=== PATIENT | male | born 1965 | race African-American/Black ===

== ENCOUNTER 2018-09-29 08:47 | Inpatient (IN) | payer OTHER ==
--- NOTE | 2018-09-29 10:28 | HP ---
CIWA Score Nausea/Vomitin Muscle Tremors: 2 Anxiety: 2 Agitation: 2 Paroxysmal Sweats: 1-Minimal Palms Moist Orientation: 0-Oriented Tacttile Disturbances: 1-Very Mild Itch/Numbness Auditory Disturbances: 1-Very Mild Visual Disturbances: 0-None Headache: 2-Mild CIWA-Ar Total Score: 13 - Admission Criteria OASAS Guidelines: Admission for Medically Managed Detox: Requires at least one of the followin. CIWA greater than 12 2. Seizures within the past 24 hours 3. Delirium tremens within the past 24 hours 4. Hallucinations within the past 24 hours 5. Acute intervention needed for co occurring medical disorder 6. Acute intervention needed for co occurring psychiatric disorder 7. Severe withdrawal that cannot be handled at a lower level of care (continued vomiting, continued diarrhea, abnormal vital signs) requiring intravenous medication and/or fluids 8. Admission ROS BHS - HPI Chief Complaint: i need help to stop drinking alcohol Allergies/Adverse Reactions: Allergies Allergy/AdvReac Type Severity Reaction Status Date / Time No Known Allergies Allergy Verified 11/19/13 20:23 History of Present Illness: this 52 years old male with alcohol dependence,seeking detox,withdrawal symptom, seen in [facility] yesterday for cellulitis both legs ,supposed to be on clindamycin 300 mgs po q 6 hrs for 7 days multiple admissions in detox,last 2018 nicotine dependence 1/2 pack/day,does not want nicotine replacemant syncope alcohol related swelling with multiple ulcer and cellulitis both legs for 1 week no significant period of sobriety plan for relocate in [place] , Exam Limitations: No Limitations - Ebola screening Have you traveled outside of the country in the last 21 days: No Have you had contact with anyone from an Ebola affected area: No Do you have a fever: No - Review of Systems Constitutional: Loss of Appetite, Malaise, Night Sweats, Changes in sleep EENT: reports: Nose Congestion Respiratory: reports: No Symptoms reported Cardiac: reports: No Symptoms Reported GI: reports: Diarrhea, Nausea, Indigestion : reports: No Symptoms Reported Musculoskeletal: reports: Back Pain, Muscle Pain Integumentary: reports: Dryness Neuro: reports: Headache, Tremors Endocrine: reports: No Symptoms Reported Hematology: reports: No Symptoms Reported Psychiatric: reports: No Sypmtoms Reported, Judgement Intact, Mood/Affect Appropiate, Orientated x3 Other Systems: Reviewed and Negative Patient History - Patient Medical History Hx Anemia: No Hx Asthma: No Hx Chronic Obstructive Pulmonary Disease (COPD): No Hx Cancer: No Hx Cardiac Disorders: No Hx Congestive Heart Failure: No Hx Hypertension: Yes (currently on treatment,norvasc 10mg/d) Hx Hypercholesterolemia: No Hx Pacemaker: No HX Cerebrovascular Accident: No Hx Seizures: No Hx Dementia: No Hx Diabetes: No Hx Gastrointestinal Disorders: No Hx Liver Disease: No Hx Genitourinary Disorders: No Hx Sexually Transmitted Disorders: No Hx Renal Disease (ESRD): No Hx Thyroid Disease: No Hx Human Immunodeficiency Virus (HIV): No (checked neg 1 month ago) Hx Hepatitis C: No (checked neg 1 month ago) Hx Depression: No Hx Suicide Attempt: No Hx Bipolar Disorder: No Hx Schizophrenia: No Other Medical History: no suiciidal,no homicidal - Patient Surgical History Past Surgical History: No Hx Neurologic Surgery: No Hx Cataract Extraction: No Hx Cardiac Surgery: No Hx Lung Surgery: No Hx Breast Surgery: No Hx Breast Biopsy: No Hx Abdominal Surgery: No Hx Appendectomy: No Hx Cholecystectomy: No Hx Genitourinary Surgery: No Hx Section: No Hx Orthopedic Surgery: No Anesthesia Reaction: No - PPD History Previous Implant?: Yes Documented Results: Negative w/o proof Implanted On Prior R Admission?: Yes Date: 12/17/12 Results: 0 mm PPD to be Administered?: Yes - Smoking Cessation Smoking history: Current every day smoker Have you smoked in the past 12 months: Yes Aproximately how many cigarettes per day: 10 Cigars Per Day: 0 Hx Chewing Tobacco Use: No Initiated information on smoking cessation: Yes 'Breaking Loose' booklet given: 09/29/18 - Substance & Tx. History Hx Alcohol Use: Yes Hx Substance Use: No Substance Use Type: Alcohol Hx Substance Use Treatment: Yes (2018 in [place]) - Substances abused Alcohol Substance route: Oral Frequency: Daily Amount used: 2 cases beer per day 12 ozs Age of first use: 18 Date of last use: 09/28/18 Family Disease History - Family Disease History Family Disease History: Diabetes: Grandparent, Other: Father (htn ,), Mother (ALCOHOL,) Admission Physical Exam BHS - Vital Signs Vital Signs: Vital Signs - 24 hr 09/29/18 09:40 Temperature 97.3 F L Pulse Rate 87 Respiratory 20 Rate Blood Pressure 150/92 - Physical General Appearance: Yes: Moderate Distress, Tremorous, Irritable, Sweating, Anxious HEENTM: Yes: Normal ENT Inspection, ALYX, Pharynx Normal Respiratory: Yes: Lungs Clear, Normal Breath Sounds, No Respiratory Distress Neck: Yes: Within Normal Limits, Supple, Trachea in good position Breast: Yes: Within Normal Limits Cardiology: Yes: Within Normal Limits, Regular Rhythm, Regular Rate, S1, S2 Abdominal: Yes: Within Normal Limits, Normal Bowel Sounds, Non Tender, Flat, Soft Genitourinary: Yes: Within Normal Limits Back: Yes: Muscle Spasm Musculoskeletal: Yes: full range of Motion, Back pain, Muscle Pain Extremities: Yes: Tremors, Inflammation (swelling with pain in both legs multiple ulcers both legs cellulitis both legs poor hygiene) Neurological: Yes: machine heel builder II-XII NML intact, Alert, Motor Strength 5/5 Integumentary: Yes: Dry Lymphatic: Yes: Within Normal Limits - Diagnostic (1) Alcohol dependence with uncomplicated withdrawal Current Visit: Yes Status: Acute (2) Syncope Current Visit: Yes Status: Acute (3) Bilateral cellulitis of lower leg Current Visit: Yes Status: Acute (4) Ulcers of both lower extremities Current Visit: Yes Status: Acute (5) Nicotine dependence Current Visit: Yes Status: Acute (6) Dehydration Current Visit: Yes Status: Acute Cleared for Admission S - Detox or Rehab [facility] Level of Care: Medically Managed Detox Regimen/Protocol: Librium Inpatient Rehab Admission - Rehab Decision to Admit Inpatient rehab admission?: No
[2018-09-29] MEDS ORDERED: MAGNESIUM HYDROX 2400MG/30ML ORAL SUSPENSION 30 ML CUP PO PRN (10:38)
[2018-09-29] MEDS ORDERED: IBUPROFEN 400 MG TABLET (FP) PO PRN (10:38)
[2018-09-29] MEDS ORDERED: chlordiazePOXIDE HCL 25 MG CAPSULE PO PRN (10:38)
[2018-09-29] MEDS ORDERED: MAGNESIUM CITRATE 300 ML BOTTLE PO PRN (10:38)
[2018-09-29] MEDS ORDERED: METHOCARBAMOL 500 MG TABLET PO PRN (10:38)
[2018-09-29] MEDS ORDERED: MAG HYDROX/AL HYDROX/SIMETH 30 ML UNIT-DOSE CUP PO PRN (10:38)
[2018-09-29] MEDS ORDERED: MENTHOL/PHENOL 1 EACH UD MM PRN (10:38)
[2018-09-29] MEDS ORDERED: MELATONIN 5 MG TABLETS PO PRN (10:38)
[2018-09-29] MEDS ORDERED: hydrOXYzine PAMOATE 25 MG CAPSULE (FP) PO PRN (10:38)
[2018-09-29] MEDS ORDERED: BISMUTH SUBSALICYLATE 524 MG/30 ML UD PO PRN (10:38)
[2018-09-29] MEDS ORDERED: ACETAMINOPHEN 325 MG TABLET (FP) PO PRN ×2 (10:38)
[2018-09-29] MEDS ORDERED: CLINDAMYCIN HCL 300 MG CAPSULE PO SCH (12:00)
[2018-09-29] MEDS: amLODIPine BESYLATE 10 MG TABLET (FP) PO SCH (12:07)
[2018-09-29] MEDS: CLINDAMYCIN HCL 150 MG CAPSULE (FP) PO SCH ×3 (12:07→23:14)
--- NOTE | 2018-09-29 12:19 | PN ---
S Progress Note Note: pt refusing PPD test, says he prefers cxray- ordered
--- NOTE | 2018-09-29 15:43 | EKG ---
Test Reason : Blood Pressure : / mmHG Vent. Rate : 080 BPM Atrial Rate : 080 BPM P-R Int : 150 ms QRS Dur : 096 ms QT Int : 394 ms P-R-T Axes : 049 038 040 degrees QTc Int : 454 ms NORMAL SINUS RHYTHM VOLTAGE CRITERIA FOR LEFT VENTRICULAR HYPERTROPHY ABNORMAL ECG NO PREVIOUS ECGS AVAILABLE Confirmed by KILEY MILAN MD ([id number]) on 09/29/2018 3:42:55 PM Referred By: Confirmed By:KILEY MILAN MD
[2018-09-29] MEDS: chlordiazePOXIDE HCL 25 MG CAPSULE PO SCH ×2 (18:14→22:45)
[2018-09-29 19:44] LABS: PH,URINE 6.5 (5.0-8.0); URINE APPEARANCE CLEAR; URINE BILIRUBIN NEGATIVE (NEGATIVE); URINE COLOR YELLOW; URINE GLUCOSE (UA) NEGATIVE (NEGATIVE); URINE KETONE NEGATIVE (NEGATIVE); URINE NITRITE NEGATIVE (NEGATIVE); URINE PROTEIN NEGATIVE (NEGATIVE); URINE UROBILINOGEN 0.2 mg/dL (0.2-1.0)
[2018-09-29 19:45] LABS: URINE LEUK ESTERASE NEGATIVE (NEGATIVE)
[2018-09-29] MEDS: THIAMINE HCL 100 MG TABLET (FP) PO SCH (22:45)
[2018-09-30] MEDS: chlordiazePOXIDE HCL 25 MG CAPSULE PO SCH ×3 (06:54→18:03)
[2018-09-30] MEDS: CLINDAMYCIN HCL 150 MG CAPSULE (FP) PO SCH ×4 (06:55→23:10)
[2018-09-30 09:42] LABS: HEMATOCRIT 30.4 % (35.4-49); HEMOGLOBIN 9.9 GM/dL (11.7-16.9); MCH 25.6 pg (25.7-33.7); MCHC 32.5 g/dl (32.0-35.9); MEAN CELL VOLUME 78.8 fl (80-96); MEAN PLT VOLUME 8.4 fl (7.5-11.1); PLATELET COUNT 346 K/MM3 (134-434); RBC 3.86 M/mm3 (4.00-5.60); RDW 18.1 % (11.9-15.9); WHITE BLOOD COUNT 7.2 K/mm3 (4.0-10.0)
[2018-09-30 09:56] LABS: ALBUMIN 2.6 g/dl (3.4-5.0); BILIRUBIN,TOTAL 0.2 mg/dL (0.2-1); BLOOD UREA NITROGEN 9.2 mg/dL (7-18); CALCIUM 8.5 mg/dL (8.5-10.1); POTASSIUM 4.3 mmol/L (3.5-5.1); TOT PROT 6.4 g/dl (6.4-8.2)
--- NOTE | 2018-09-30 10:35 | PN ---
S CIWA - CIWA Score Nausea/Vomitin Muscle Tremors: 2 Anxiety: 2 Agitation: 2 Paroxysmal Sweats: No Perspiration Orientation: 0-Oriented Tacttile Disturbances: 1-Very Mild Itch/Numbness Auditory Disturbances: 1-Very Mild Visual Disturbances: 0-None Headache: 2-Mild CIWA-Ar Total Score: 12 S Progress Note (SOAP) Subjective: alert,irritable,anxious,interrupted sleep,tremor,pain in the body and legs Objective: 09/30/18 10:33 Vital Signs Temperature 98.1 F 09/30/18 09:14 Pulse Rate 82 09/30/18 09:14 Respiratory Rate 17 09/30/18 09:14 Blood Pressure 152/103 H 09/30/18 09:14 O2 Sat by Pulse Oximetry (%) Laboratory Last Values WBC 7.2 K/mm3 (4.0-10.0) 09/30/18 07:30 RBC 3.86 M/mm3 (4.00-5.60) L 09/30/18 07:30 Hgb 9.9 GM/dL (11.7-16.9) L 09/30/18 07:30 Hct 30.4 % (35.4-49) L D 09/30/18 07:30 MCV 78.8 fl (80-96) L 09/30/18 07:30 MCH 25.6 pg (25.7-33.7) L 09/30/18 07:30 MCHC 32.5 g/dl (32.0-35.9) 09/30/18 07:30 RDW 18.1 % (11.9-15.9) H 09/30/18 07:30 Plt Count 346 K/MM3 (134-434) D 09/30/18 07:30 MPV 8.4 fl (7.5-11.1) 09/30/18 07:30 Sodium 140 mmol/L (136-145) 09/30/18 07:30 Potassium 4.3 mmol/L (3.5-5.1) 09/30/18 07:30 Chloride 107 mmol/L (98-107) 09/30/18 07:30 Carbon Dioxide 28 mmol/L (21-32) 09/30/18 07:30 Anion Gap 5 MMOL/L (8-16) L 09/30/18 07:30 BUN 9.2 mg/dL (7-18) 09/30/18 07:30 Creatinine 1.0 mg/dL (0.55-1.3) 09/30/18 07:30 Est GFR (CKD-EPI)AfAm 99.85 09/30/18 07:30 Est GFR (CKD-EPI)NonAf 86.15 09/30/18 07:30 Random Glucose 103 mg/dL (74-106) 09/30/18 07:30 Calcium 8.5 mg/dL (8.5-10.1) 09/30/18 07:30 Total Bilirubin 0.2 mg/dL (0.2-1) 09/30/18 07:30 AST 12 U/L (15-37) L 09/30/18 07:30 ALT 13 U/L (13-61) 09/30/18 07:30 Alkaline Phosphatase 48 U/L (45-117) 09/30/18 07:30 Total Protein 6.4 g/dl (6.4-8.2) 09/30/18 07:30 Albumin 2.6 g/dl (3.4-5.0) L 09/30/18 07:30 Urine Color Yellow 09/29/18 15:45 Urine Appearance Clear 09/29/18 15:45 Urine pH 6.5 (5.0-8.0) 09/29/18 15:45 Ur Specific [place] 1.020 (1.010-1.035) 09/29/18 15:45 Urine Protein Negative (NEGATIVE) 09/29/18 15:45 Urine Glucose (UA) Negative (NEGATIVE) 09/29/18 15:45 Urine Ketones Negative (NEGATIVE) 09/29/18 15:45 Urine Blood Negative (NEGATIVE) 09/29/18 15:45 Urine Nitrite Negative (NEGATIVE) 09/29/18 15:45 Urine Bilirubin Negative (NEGATIVE) 09/29/18 15:45 Urine Urobilinogen 0.2 mg/dL (0.2-1.0) 09/29/18 15:45 Ur Leukocyte Esterase Negative (NEGATIVE) 09/29/18 15:45 09/30/18 10:33 other labs pending anemia Assessment: 09/30/18 10:34 withdrawal symptom Plan: continue detox,ferrous sulfate 325 mgs po bid,silvadene cream both legs bid, continue clindamycin 300 mgs po 6 6 hrs for 7 days
[2018-09-30] MEDS: PRENATAL VITAMINS W/ FOLIC ACID TABLET (FP) PO SCH (10:48)
[2018-09-30] MEDS: amLODIPine BESYLATE 10 MG TABLET (FP) PO SCH (10:48)
[2018-09-30] MEDS: SILVER SULFADIAZINE 1% TOP CREAM 50 GM JAR TP SCH ×2 (11:00→22:50)
[2018-09-30] MEDS: FERROUS SO4 325 MG TABLET (FP) PO SCH (18:04)
[2018-09-30] MEDS: THIAMINE HCL 100 MG TABLET (FP) PO SCH (23:30)
[2018-10-01] MEDS: chlordiazePOXIDE HCL 25 MG CAPSULE PO SCH ×3 (00:21→10:33)
[2018-10-01] MEDS: CLINDAMYCIN HCL 150 MG CAPSULE (FP) PO SCH ×4 (05:56→23:06)
[2018-10-01] MEDS: FERROUS SO4 325 MG TABLET (FP) PO SCH ×2 (07:33→18:34)
[2018-10-01] MEDS: SILVER SULFADIAZINE 1% TOP CREAM 50 GM JAR TP SCH ×2 (10:33→21:51)
[2018-10-01] MEDS: PRENATAL VITAMINS W/ FOLIC ACID TABLET (FP) PO SCH (10:33)
[2018-10-01] MEDS: amLODIPine BESYLATE 10 MG TABLET (FP) PO SCH (10:33)
--- NOTE | 2018-10-01 10:35 | PN ---
S CIWA - CIWA Score Nausea/Vomitin Muscle Tremors: 2 Anxiety: 2 Agitation: 2 Paroxysmal Sweats: No Perspiration Orientation: 0-Oriented Tacttile Disturbances: 1-Very Mild Itch/Numbness Auditory Disturbances: 0-None Visual Disturbances: 0-None Headache: 2-Mild CIWA-Ar Total Score: 11 BHS Progress Note (SOAP) Subjective: alert,irritable,anxious,interrupted sleep,tremor Objective: 10/01/18 10:29 Vital Signs Temperature 97.7 F 10/01/18 10:05 Pulse Rate 82 10/01/18 10:05 Respiratory Rate 18 10/01/18 10:05 Blood Pressure 140/81 10/01/18 10:05 O2 Sat by Pulse Oximetry (%) Assessment: 10/01/18 10:35 withdrawal symptom Plan: continue detox
[2018-10-01] MEDS ORDERED: chlordiazePOXIDE HCL 10 MG CAPSULE PO PRN (17:00)
[2018-10-01] MEDS: chlordiazePOXIDE HCL 10 MG CAPSULE PO SCH ×2 (18:32→23:04)
[2018-10-01] MEDS ORDERED: cloNIDine HCL 0.1 MG TABLET PO ONE (21:19)
[2018-10-01] MEDS: THIAMINE HCL 100 MG TABLET (FP) PO SCH (21:51)
[2018-10-02] MEDS: chlordiazePOXIDE HCL 10 MG CAPSULE PO SCH ×3 (06:31→17:53)
[2018-10-02] MEDS: CLINDAMYCIN HCL 150 MG CAPSULE (FP) PO SCH ×4 (06:32→23:16)
[2018-10-02] MEDS: FERROUS SO4 325 MG TABLET (FP) PO SCH ×2 (08:00→17:54)
[2018-10-02] MEDS: SILVER SULFADIAZINE 1% TOP CREAM 50 GM JAR TP SCH ×2 (10:21→23:19)
[2018-10-02] MEDS: PRENATAL VITAMINS W/ FOLIC ACID TABLET (FP) PO SCH (10:21)
[2018-10-02] MEDS: amLODIPine BESYLATE 10 MG TABLET (FP) PO SCH (10:21)
--- NOTE | 2018-10-02 11:03 | PN ---
S CIWA - CIWA Score Nausea/Vomitin-No Nausea/No Vomiting Muscle Tremors: None Anxiety: 1-Mildly Anxious Agitation: 0-Normal Activity Paroxysmal Sweats: No Perspiration Orientation: 0-Oriented Tacttile Disturbances: 0-None Auditory Disturbances: 0-None Visual Disturbances: 0-None Headache: 2-Mild CIWA-Ar Total Score: 3 BHS Progress Note (SOAP) Subjective: PATIENT C/O MILD SHAKES AND HEADACHE. REPORTS FEELING BETTER SINCE ADMISSION. Objective: 10/02/18 11:01 Vital Signs Period Temp Pulse Resp BP Sys/Vo Pulse Ox Last 24 Hr 96.6 F-98.0 F 74-84 16-18 145-155/89-108 Laboratory Tests 09/29/18 09/30/18 09/30/18 15:45 07:30 07:30 WBC 7.2 RBC 3.86 L Hgb 9.9 L Hct 30.4 L D MCV 78.8 L MCH 25.6 L MCHC 32.5 RDW 18.1 H Plt Count 346 D MPV 8.4 Sodium 140 Potassium 4.3 Chloride 107 Carbon Dioxide 28 Anion Gap 5 L BUN 9.2 Creatinine 1.0 Est GFR (CKD-EPI)AfAm 99.85 Est GFR (CKD-EPI)NonAf 86.15 Random Glucose 103 Calcium 8.5 Total Bilirubin 0.2 AST 12 L ALT 13 Alkaline Phosphatase 48 Total Protein 6.4 Albumin 2.6 L Urine Color Yellow Urine Appearance Clear Urine pH 6.5 Ur Specific [place] 1.020 Urine Protein Negative Urine Glucose (UA) Negative Urine Ketones Negative Urine Blood Negative Urine Nitrite Negative Urine Bilirubin Negative Urine Urobilinogen 0.2 Ur Leukocyte Esterase Negative RPR Titer 09/30/18 07:30 WBC RBC Hgb Hct MCV MCH MCHC RDW Plt Count MPV Sodium Potassium Chloride Carbon Dioxide Anion Gap BUN Creatinine Est GFR (CKD-EPI)AfAm Est GFR (CKD-EPI)NonAf Random Glucose Calcium Total Bilirubin AST ALT Alkaline Phosphatase Total Protein Albumin Urine Color Urine Appearance Urine pH Ur Specific [place] Urine Protein Urine Glucose (UA) Urine Ketones Urine Blood Urine Nitrite Urine Bilirubin Urine Urobilinogen Ur Leukocyte Esterase RPR Titer Nonreactive PE: ALERT AND ORIENTED X 3 SKIN WARM AND DRY +PERRLA, EOMS INTACT BL EXT MILD TREMORS FELT, AMB AD RENA Assessment: 06/22/19 11:02 WITHDRAWAL SX Plan: CONTINUE DETOX ENCOURAGE FLUIDS MONITOR CLINICALLY
[2018-10-02] MEDS: THIAMINE HCL 100 MG TABLET (FP) PO SCH (23:16)
[2018-10-03] MEDS: CLINDAMYCIN HCL 150 MG CAPSULE (FP) PO SCH ×4 (06:18→23:08)
[2018-10-03] MEDS: chlordiazePOXIDE HCL 10 MG CAPSULE PO SCH ×2 (06:19→17:07)
[2018-10-03] MEDS: FERROUS SO4 325 MG TABLET (FP) PO SCH ×2 (07:39→17:07)
[2018-10-03] MEDS: amLODIPine BESYLATE 10 MG TABLET (FP) PO SCH (09:46)
[2018-10-03] MEDS: SILVER SULFADIAZINE 1% TOP CREAM 50 GM JAR TP SCH ×2 (09:46→23:27)
[2018-10-03] MEDS: PRENATAL VITAMINS W/ FOLIC ACID TABLET (FP) PO SCH (09:46)
--- NOTE | 2018-10-03 13:02 | PN ---
S CIWA - CIWA Score Nausea/Vomitin-No Nausea/No Vomiting Muscle Tremors: 3 Anxiety: 2 Agitation: 0-Normal Activity Paroxysmal Sweats: No Perspiration Orientation: 0-Oriented Tacttile Disturbances: 0-None Auditory Disturbances: 0-None Visual Disturbances: 0-None Headache: 0-None Present CIWA-Ar Total Score: 5 BHS Progress Note (SOAP) Subjective: Tremor, interrupted sleep Objective: 10/03/18 13:01 Last Vital Signs Temp Pulse Resp BP Pulse Ox 98.1 F 70 18 118/66 10/03/18 09:40 10/03/18 09:40 10/03/18 09:40 10/03/18 09:40 Laboratory Tests 09/29/18 09/30/18 09/30/18 15:45 07:30 07:30 WBC 7.2 RBC 3.86 L Hgb 9.9 L Hct 30.4 L D MCV 78.8 L MCH 25.6 L MCHC 32.5 RDW 18.1 H Plt Count 346 D MPV 8.4 Sodium 140 Potassium 4.3 Chloride 107 Carbon Dioxide 28 Anion Gap 5 L BUN 9.2 Creatinine 1.0 Est GFR (CKD-EPI)AfAm 99.85 Est GFR (CKD-EPI)NonAf 86.15 Random Glucose 103 Calcium 8.5 Total Bilirubin 0.2 AST 12 L ALT 13 Alkaline Phosphatase 48 Total Protein 6.4 Albumin 2.6 L Urine Color Yellow Urine Appearance Clear Urine pH 6.5 Ur Specific [place] 1.020 Urine Protein Negative Urine Glucose (UA) Negative Urine Ketones Negative Urine Blood Negative Urine Nitrite Negative Urine Bilirubin Negative Urine Urobilinogen 0.2 Ur Leukocyte Esterase Negative RPR Titer 09/30/18 07:30 WBC RBC Hgb Hct MCV MCH MCHC RDW Plt Count MPV Sodium Potassium Chloride Carbon Dioxide Anion Gap BUN Creatinine Est GFR (CKD-EPI)AfAm Est GFR (CKD-EPI)NonAf Random Glucose Calcium Total Bilirubin AST ALT Alkaline Phosphatase Total Protein Albumin Urine Color Urine Appearance Urine pH Ur Specific [place] Urine Protein Urine Glucose (UA) Urine Ketones Urine Blood Urine Nitrite Urine Bilirubin Urine Urobilinogen Ur Leukocyte Esterase RPR Titer Nonreactive Labs reviewed Assessment: 10/03/18 13:02 Withdrawal symptoms Plan: Continue detox Encouraged PO water intake
[2018-10-03] MEDS: THIAMINE HCL 100 MG TABLET (FP) PO SCH (22:49)
[2018-10-04] MEDS: CLINDAMYCIN HCL 150 MG CAPSULE (FP) PO SCH ×2 (05:48→12:51)
[2018-10-04 06:40] VITALS: TEMP 97.5
[2018-10-04] MEDS: FERROUS SO4 325 MG TABLET (FP) PO SCH (07:06)
[2018-10-04 09:10] VITALS: BP 145/99; PULSE 77
--- NOTE | 2018-10-04 09:24 | DS ---
[facility] Detox Discharge Summary Admission Date: 09/29/18 Discharge Date: 10/04/18 - History Present History: Alcohol Dependence - Physical Exam Results Vital Signs: Vital Signs Temperature 97.5 F L 10/04/18 09:09 Pulse Rate 77 10/04/18 09:09 Respiratory Rate 16 10/04/18 09:09 Blood Pressure 145/99 10/04/18 09:09 O2 Sat by Pulse Oximetry (%) - Treatment Hospital Course: Detox Protocol Followed, Detoxed Safely, Responded well, Discharged Condition Good, Rehab Referral Accepted - Medication Discharge Medications: Ambulatory Orders Amlodipine Besylate [Norvasc -] 10 mg PO DAILY 11/19/13 - Diagnosis (1) Alcohol dependence with uncomplicated withdrawal Current Visit: Yes Status: Chronic (2) Bilateral cellulitis of lower leg Current Visit: Yes Status: Acute (3) Nicotine dependence Current Visit: Yes Status: Chronic Qualifiers: Nicotine product type: cigarettes Substance use status: uncomplicated Qualified Code(s): F17.210 - Nicotine dependence, cigarettes, uncomplicated (4) Syncope Current Visit: Yes Status: Acute (5) Ulcers of both lower extremities Current Visit: Yes Status: Acute (6) Essential hypertension Current Visit: Yes Status: Chronic - AMA Did Patient Leave Against Medical Advice: No (pt declined aftercare. )
[2018-10-04] MEDS: SILVER SULFADIAZINE 1% TOP CREAM 50 GM JAR TP SCH (11:00)
[2018-10-04] MEDS: amLODIPine BESYLATE 10 MG TABLET (FP) PO SCH (11:00)
[2018-10-04] MEDS: PRENATAL VITAMINS W/ FOLIC ACID TABLET (FP) PO SCH (11:00)
== END 2018-10-04 13:20 | disposition home or self-care (01) | DRG 775 ==
LOC: YASAS 08:47 → Y6N 10:31
PROVIDERS: ADMIT Surgery; ATTEND Surgery
PROC: HZ2ZZZZ Detoxification Services for Substance Abuse Treatment (ICD-10-PCS; principal; 2018-09-29)
DX: F10.230 Alcohol dependence with withdrawal, uncomplicated (principal); F17.210 Nicotine dependence, cigarettes, uncomplicated; I10 Essential (primary) hypertension; L03.115 Cellulitis of right lower limb; L03.116 Cellulitis of left lower limb; L97.929 Non-pressure chronic ulcer of unspecified part of left lower leg with unspecified severity; L97.919 Non-pressure chronic ulcer of unspecified part of right lower leg with unspecified severity; E86.0 Dehydration
CPT/HCPCS: 36415; 71046-TC-FY; 80053; 81003; 85027; 86593; 93005; 93010; J0735